=== PATIENT | female | born 1995 | race Two or more races ===

== ENCOUNTER 2019-03-30 09:53 | Emergency (ER) | payer OTHER ==
[~2019-03-30] VITALS: Ht 157.5 cm; Wt 47.6 kg
[2019-03-30 10:48] LABS: BILIRUBIN,URINE NEGATIVE (NEG); CLARITY,URINE CLEAR; COLOR,URINE YELLOW; NITRITE,URINE NEGATIVE (NEG); PH,URINE 6.5; PROTEIN,URINE NEGATIVE (NEG-TRACE); UROBILINOGEN,URINE 0.2 mg/dL (0.2 mg/dL)
[2019-03-30 11:02] LABS: SQUAMOUS EPITHELIAL CELL,UR MANY /LPF
[2019-03-30 11:03] LABS: BACTERIA,URINE MODERATE /HPF (0-FEW); RBC,URINE OCC /HPF (0-2)
[2019-03-30 11:29] VITALS: BP 105/65
--- NOTE | 2019-03-30 13:26 | PHYS DOC ---
Past Medical History Past Medical History: No Pertinent History Past Surgical History: No Surgical History Alcohol Use: None Drug Use: None Adult General Chief Complaint Chief Complaint: ABDOMINAL PAIN [facility] HPI Patient is a 24 year old female with cc of abdominal pain intermittently for a year just came here from [place] the last time she had the pain was 15 days ago but they called the advice line and they said if she is out of [place] she should come to the emergency room but have not yet got [facility] Patient does not currently have the pain no dysuria no vaginal bleeding no vaginal discharge no fever no vomiting no diarrhea did have a miscarriage 2 months ago. Review of Systems Review of Systems Constitutional: Denies fever or chills [] Eyes: Denies change in visual acuity, redness, or eye pain [] Cardiovascular: No additional information not addressed in HPI [] GI: Integument: Denies rash or skin lesions [] Neurologic: Denies headache, focal weakness or sensory changes [] Endocrine: Denies polyuria or polydipsia [] All other systems were reviewed and found to be within normal limits, except as documented in this note. Allergies Allergies Allergies Coded Allergies Type Severity Reaction Last Updated Verified No Known Drug Allergies 03/30/19 No Physical Exam Physical Exam Constitutional: Well developed, well nourished, no acute distress, non-toxic appearance. [] HENT: Normocephalic, atraumatic, bilateral external ears normal, oropharynx moist, no oral exudates, nose normal. [] Eyes: PERRLA, EOMI, conjunctiva normal, no discharge. [] Neck: Normal range of motion, no tenderness, supple, no stridor. [] Abdomen: Bowel sounds normal, soft, no tenderness, no masses, no pulsatile masses. [] Skin: Warm, dry, no erythema, no rash. [] Back: No tenderness, no CVA tenderness. [] Extremities: No tenderness, no cyanosis, no clubbing, ROM intact, no edema. [] Neurologic: Alert and oriented X 3, normal motor function, normal sensory function, no focal deficits noted. [] Psychologic: Affect normal, judgement normal, mood normal. [] Current Patient Data Vital Signs Vital Signs Date Time Temp Pulse Resp B/P (MAP) Pulse Ox O2 Delivery O2 Flow Rate FiO2 03/30/19 11:29 74 105/65 (78) Room Air 03/30/19 10:13 97.8 16 100 97.8 Lab Values Laboratory Tests Test 03/30/19 10:21 03/30/19 10:40 POC Urine HCG, Qualitative Hcg negative (Negative) Urine Collection Type Void Urine Color Yellow Urine Clarity Clear Urine pH 6.5 Urine Specific [place] 1.015 Urine Protein Negative mg/dL (NEG-TRACE) Urine Glucose (UA) Negative mg/dL (NEG) Urine Ketones (Stick) Negative mg/dL (NEG) Urine Blood Negative (NEG) Urine Nitrite Negative (NEG) Urine Bilirubin Negative (NEG) Urine Urobilinogen Dipstick 0.2 mg/dL (0.2 mg/dL) Urine Leukocyte Esterase Small (NEG) Urine RBC Occ /HPF (0-2) Urine WBC 5-10 /HPF (0-4) Urine Squamous Epithelial Cells Many /LPF Urine Bacteria Moderate /HPF (0-FEW) EKG EKG [] Radiology/Procedures Radiology/Procedures [] Course & Med Decision Making Course & Med Decision Making Pertinent Labs and Imaging studies reviewed. (See chart for details) []Abdominal pain and has not been present for over 2 weeks urine negative abdominal exam benign I discussed with the [facility] sweatband shaper and I did find out that they had not had pain for 2 weeks solid I tried to give him the phone number for [facility] as well as clinic follow-up numbers for this chronic abdominal pain intermittent follow-up with her primary doctor Eileen Disclaimer Eileen Disclaimer This electronic medical record was generated, in whole or in part, using a voice recognition dictation system. Departure Departure Impression: Primary Impression: Abdominal pain Disposition: HOME, SELF-CARE Condition: STABLE Patient Instructions: Abdominal Pain (Nonspecific) FLAKO HUA MD Mar 30, 2019 13:26
== END 2019-03-30 11:41 | disposition home or self-care (01) ==
LOC: ER 09:53
DX: R10.32 Left lower quadrant pain (principal); R10.31 Right lower quadrant pain; G89.29 Other chronic pain
CPT/HCPCS: 81001; 81025; 87086; 99284